=== PATIENT | female | born 1980 | race Two or more races ===

== ENCOUNTER 2024-04-03 10:27 | Inpatient (IN) | payer MEDICAID ==
[~2024-04-03] VITALS: Ht 157.5 cm; Wt 81.8 kg
[2024-04-03 11:52] LABS: Basophils # (auto) 0 10 ^3/uL (0-0.2); Basophils % (auto) 0.1 % (0.0-2.0); Eosinophils # (auto) 0 10 ^3/uL (0-0.8); Eosinophils % (auto) 0.2 % (0.0-7.0); Hematocrit 36.8 % (36.0-46.0); Hemoglobin 12.5 g/dL (12.2-16.2); Lymphocytes # (auto) 1.5 10 ^3/uL (0.4-5.4); Lymphocytes % (auto) 10.9 % (10.0-50.0); Mean Corpuscular Hemoglobin 30.1 pg (28.0-32.0); Mean Corpuscular Hgb Conc. 33.9 g/dL (32.0-36.0); Mean Corpuscular Volume 88.7 fL (80.0-100.0); Monocytes # (auto) 0.6 10 ^3/uL (0-1.3); Monocytes % (auto) 4.2 % (0.0-12.0); Neutrophils % (auto) 84.6 % (37.0-80.0); Red Blood Cells 4.14 10^6/uL (4.0-5.20); Red Cell Distribution Width 13.6 % (11.8-14.3); White Blood Cell 14.2 10^3/uL (4.4-10.8)
[2024-04-03 12:03] LABS: Alanine Aminotransferase 11 U/L (7-40); Alkaline Phosphatase 46 U/L (46-116); Anion Gap 6 (5-15); Aspartate Aminotransferase < 8 U/L (13-40); BUN/Creatinine Ratio 11.8 (10.0-20.0); Blood Urea Nitrogen 8 mg/dL (9-23); Calcium 9.4 mg/dL (8.7-10.4); Carbon Dioxide 26 mmol/L (20-30); Chloride 104 mmol/L (98-107); Glucose 149 mg/dL (74-106); Potassium 3.7 mmol/L (3.5-5.1); Sodium 136 mmol/L (136-145)
[2024-04-03 12:04] LABS: Albumin 4.5 g/dL (3.2-4.8); Bilirubin, Total 0.4 mg/dL (0.2-1.0); Total Protein 7.3 g/dL (5.7-8.2)
[2024-04-03 12:30] LABS: Urine Bacteria None Seen /hpf (None Seen)
[2024-04-03 12:37] LABS: Urine Blood TRACE /uL (Negative); Urine Clarity Clear (Clear); Urine Color Colorless (Yellow); Urine Protein, UAD Negative (Negative); Urine Specific Gravity 1.001 (1.001-1.035); Urine Urobilinogen Normal (Negative); Urine WBC 3 /hpf (0 - 5)
[2024-04-03 14:23] VITALS: O2SAT 98
[2024-04-03] MEDS: cefTRIAXone 1GM/50ML D5W 50 ML IV ONE (14:31)
[2024-04-03] MEDS: KETOROLAC TROMETH 30 MG/ML 1ML VIAL IV ONE (15:15)
[2024-04-03] MEDS: SODIUM CHLORIDE 0.9% 1,000 ML IV ONE (15:15)
[2024-04-03] MEDS: FUROSEMIDE 20 MG/2 ML VIAL IV ONE (15:15)
[2024-04-03] MEDS: TAMSULOSIN HYDROCHLORIDE 0.4 MG CAP PO ONE (15:15)
[2024-04-03] MEDS ORDERED: ACETAMINOPHEN 325 MG TAB PO PRN (15:45)
[2024-04-03] MEDS ORDERED: KETOROLAC TROMETH 30 MG/ML 1ML VIAL IV PRN (15:45)
[2024-04-03] MEDS ORDERED: ONDANSETRON HCL 4 MG/2 ML VIAL IV PRN (15:45)
[2024-04-03] MEDS ORDERED: HYDROcodone-ACET 5/325MG TAB PO PRN (15:45)
[2024-04-03 16:11] LABS: Triglycerides 149 mg/dL (< 150)
[2024-04-03 16:12] LABS: LDL Cholesterol 153 mg/dL (< 100)
[2024-04-03 16:13] LABS: Cholesterol 207 mg/dL (< 200); HDL Cholesterol 52 mg/dL (40-59)
[2024-04-03] MEDS: SODIUM CHLORIDE 0.9% 1,000 ML IV SCH (16:25)
[2024-04-03] MEDS: TAMSULOSIN HYDROCHLORIDE 0.4 MG CAP PO SCH (18:16)
[2024-04-03] MEDS: MANNITOL FTV 25% 12.5 GM/50 ML 50 ML IV ONE (19:41)
[2024-04-04 04:40] VITALS: PULSE 62; RESP 16; O2SAT 0
[2024-04-04 05:00] VITALS: BP 135/75; PULSE 62; RESP 16; TEMP 98.1; O2SAT 98
[2024-04-04 07:20] LABS: Basophils # (auto) 0 10 ^3/uL (0-0.2); Basophils % (auto) 0.1 % (0.0-2.0); Eosinophils # (auto) 0.1 10 ^3/uL (0-0.8); Eosinophils % (auto) 1.1 % (0.0-7.0); Hematocrit 35.5 % (36.0-46.0); Hemoglobin 12.3 g/dL (12.2-16.2); Lymphocytes # (auto) 2.1 10 ^3/uL (0.4-5.4); Lymphocytes % (auto) 19.4 % (10.0-50.0); Mean Corpuscular Hemoglobin 30.7 pg (28.0-32.0); Mean Corpuscular Hgb Conc. 34.5 g/dL (32.0-36.0); Mean Corpuscular Volume 88.9 fL (80.0-100.0); Monocytes # (auto) 0.8 10 ^3/uL (0-1.3); Monocytes % (auto) 7.1 % (0.0-12.0); Neutrophils # (auto) 7.7 10 ^3/uL (1.6-8.6); Neutrophils % (auto) 72.3 % (37.0-80.0); Nucleated Red Blood Cells % 0.1 %; Red Blood Cells 3.99 10^6/uL (4.0-5.20); Red Cell Distribution Width 13.5 % (11.8-14.3); White Blood Cell 10.6 10^3/uL (4.4-10.8)
[2024-04-04 07:28] LABS: Alanine Aminotransferase 11 U/L (7-40); Alkaline Phosphatase 43 U/L (46-116); Anion Gap 8 (5-15); BUN/Creatinine Ratio 16.4 (10.0-20.0); Blood Urea Nitrogen 11 mg/dL (9-23); Carbon Dioxide 24 mmol/L (20-30); Chloride 107 mmol/L (98-107); Glucose 102 mg/dL (74-106); Potassium 4.2 mmol/L (3.5-5.1); Sodium 139 mmol/L (136-145)
[2024-04-04 07:29] LABS: Albumin 4.2 g/dL (3.2-4.8); Aspartate Aminotransferase < 8 U/L (13-40); Bilirubin, Total 0.4 mg/dL (0.2-1.0); Total Protein 6.8 g/dL (5.7-8.2)
[2024-04-04 09:14] VITALS: BP 102/58; PULSE 70; RESP 20; TEMP 98.1; O2SAT 98
[2024-04-04] MEDS: cefTRIAXone 1GM/50ML D5W 50 ML IV SCH (10:24)
[2024-04-04] MEDS ORDERED: ATORVASTATIN 20 MG TAB PO ONE (12:00)
[2024-04-04 13:15] VITALS: BP 110/71; PULSE 61; RESP 18; TEMP 98.6; O2SAT 98
[2024-04-04 16:42] VITALS: BP 114/68; PULSE 61; RESP 18; TEMP 97.9; O2SAT 99
[2024-04-05 09:31] LABS: Hepatitis B Surface Antigen Negative (Negative)
[2024-04-05 09:53] LABS: Hepatitis C Antibody Negative (Negative)
== END 2024-04-04 17:40 | disposition home or self-care (01) | DRG 465 ==
LOC: ER 10:27 → OVERFLOW 15:40 → WEST WING 04-04 04:15
PROVIDERS: ADMIT Internal Medicine Geriatric Medicine; ATTEND Emergency Medicine
DX: N13.2 Hydronephrosis with renal and ureteral calculous obstruction (principal); D72.829 Elevated white blood cell count, unspecified; E66.01 Morbid (severe) obesity due to excess calories; E78.5 Hyperlipidemia, unspecified; Z87.59 Personal history of other complications of pregnancy, childbirth and the puerperium; Z68.33 Body mass index [BMI] 33.0-33.9, adult
CPT/HCPCS: 36415; 74176; 80053; 80061; 81001; 83605; 84443; 85025; 86803; 87340; 96361; 96365; 96375; G0378; J1885